=== PATIENT | female | born 1965 | race Caucasian/White ===

== ENCOUNTER 2020-04-18 10:14 | Outpatient (REF) | payer BC, SELFPAY ==
[2020-04-18 12:25] LABS: Erythrocyte Sedimentation Rate 23 MM/HR (0-20)
[2020-04-20 09:33] LABS: Vitamin B12 > 2000 pg/mL (200-900)
[2020-04-21 15:42] LABS: Anti Nuclear Antibody Screen NEGATIVE (NEGATIVE)
== END 2020-04-18 10:15 | disposition home or self-care (01) ==
LOC: HO.HMGCLDS 10:14
PROVIDERS: PCP Internal Medicine; Visit Provider Psychiatry & Neurology Neurology
DX: G62.9 Polyneuropathy, unspecified (principal)
CPT/HCPCS: 36415; 82607; 85652; 86038; 86039

== ENCOUNTER → 2021-05-15 14:20 | Outpatient (BNVA) | payer BC, SELFPAY | PROVIDERS: PCP Internal Medicine; Visit Provider Internal Medicine Cardiovascular Disease | DX: I42.8 Other cardiomyopathies (principal); I44.7 Left bundle-branch block, unspecified; J30.2 Other seasonal allergic rhinitis; Z91.030 Bee allergy status; Z88.8 Allergy status to other drugs, medicaments and biological substances | CPT/HCPCS: 93005 ==

== ENCOUNTER → 2021-07-17 13:03 | Outpatient (REF) | payer BC, SELFPAY ==
--- NOTE | 2021-07-17 13:07 | CA_ITS ---
Transthoracic Echocardiogram Patient (Last, First, Middle): Stacey Arevalo, Gender: Female Date of : 1965 Age: 56 Procedure Date: 07/17/2021 Procedure Type: Transthoracic Echocardiogram Location: OP Height: 157.48 cm Weight: 70.31 kg BSA: 1.72 m2 Heart Rate: 67 bpm BP: 122 / 64 mmHg Supervisor Shipping: SB Referring MD: Sanjay Stovall MD Symptoms: I42.8 - Other cardiomyopathies Study Quality: Fair/Contrast ECG Rhythm: Sinus Conclusions: - Normal left ventricular size and systolic function. The visually estimated ejection fraction is between 55-60%. - There is paradoxical septal motion consistent with a left bundle branch block. Diastolic function is indeterminate on the basis of available data. - Normal right ventricular cavity size and systolic function. Findings Procedure Information Contrast agent, definity, is being given per protocol without apparent complications. Left Ventricle Normal left ventricular size and systolic function. The visually estimated ejection fraction is between 55-60%. There is no evidence of regional wall motion abnormalities. There is paradoxical septal motion consistent with a left bundle branch block. Diastolic function is indeterminate on the basis of available data. There is mild septal asymmetric hypertrophy. Right Ventricle Normal right ventricular cavity size and systolic function. Atria The left atrium is normal in size. Aortic Valve The aortic valve structure and function is likely normal. There is no aortic valve stenosis. There is no aortic valve regurgitation. Mitral Valve The mitral valve appears normal. There is no mitral valve regurgitation. There is no mitral valve stenosis. Pulmonic Valve The pulmonic valve was not well visualized. Tricuspid Valve Likely normal tricuspid valve structure and function. There is trace tricuspid valve regurgitation. Normal right atrial pressure. There is no evidence of pulmonary hypertension. Great Vessels All visible segments of the aorta are normal in size. The pulmonary artery was not well visualized. Venous The inferior vena cava is normal in size and collapses greater than 50% with inspiration. Pericardium/Pleural There is no evidence of pericardial effusion. Prior Study Comparison Changes noted compared to prior study dated: 01/11/2019. LVEF is normal now. Measurements 2D Linear Measurements IVSd: 1.10 0.6-0.9/0.6-1.0 cm LVIDd: 4.11 3.9-5.3/4.2-5.9 cm LVIDd Index: 2.39 2.4-3.2/2.2-3.1 cm/m2 LVIDs: 2.67 2.0-3.6 cm LVPWd: 0.85 0.7-1.1 cm LA Diam: 3.00 2.7-3.8/3.0-4.0 cm LAIDs Index: 1.74 1.5-2.3 cm/m2 LV Mass: 159.01 67-162/88-224 g LV Mass Index: 92.45 43-95/49-115 g/m2 LVOT Diam: 1.80 3.0+(-)1.3 cm 2D Systolic Function EF 4C: 69.70 >55% EF 2C: 61.20 >55% EF BiP: 68.40 >55% Mitral Valve MV Pk E: 0.90 MV PK A: 0.76 MV Decel Time: 152.00 E/A: 1.20 E'Lateral: 8.92 E'Medial: 6.64 E/E' Med: 13.50 E/E' Lat: 10.00 PHT: 45.00 MVA PHT: 4.89 Decel [place]: 5.89 Aortic Valve AoV Pk Valente: 1.33 AoV Mn Valente: 1.03 AoV VTI: 0.30 AoV Pk Grad: 7.00 Aov Mn Grad: 5.00 MEG Cont.VTI: 2.35 LVOT LVOT Pk Valente: 1.04 LVOT Mn Valente: 0.87 LVOT VTI: 0.27 LVOT Pk Grad: 4.00 LVOT Mn Grad: 3.00 LVOT Diam: 1.80 LVOT Area: 2.54 Diastolic Function MV Pk E: 0.90 MV Pk A: 0.76 E/A: 1.20 E'Medial: 6.64 E/E' Med: 13.50 E' Laterial: 8.92 E/E' Lat: 10.00 Right Ventricle TAPSE (mm): 23.30 TVS' Valente: 12.00 Tricuspid Valve TR Pk Valente: 2.59 TR Pk Grad: 27.00 RA Press: 3.00 RVSP: 30.00 Great Vessels Aorta Ao Asc: 2.50 2.1-3.4 cm Pulmonary Veins Pulm Vein S/D 1.50 Pulmonary Valve PV Pk Valente: 0.83 Peak PV Grad: 3.00 Updated in Other Vendor System with Status of Final Sanjay Stovall MD electronically signed on 07/22/2021 5:04:59 PM with status of Final
== END ==
LOC: HO.CARD 13:03
PROVIDERS: PCP Internal Medicine; Visit Provider Internal Medicine Cardiovascular Disease
DX: I42.8 Other cardiomyopathies (principal)
CPT/HCPCS: 93306; Q9957

== ENCOUNTER → 2022-07-22 13:29 | Outpatient (BNVA) | payer BC, SELFPAY | PROVIDERS: PCP Internal Medicine; Referring Provider Internal Medicine; Visit Provider Internal Medicine Cardiovascular Disease | DX: I44.7 Left bundle-branch block, unspecified (principal) | CPT/HCPCS: 93005 ==

== ENCOUNTER 2024-03-08 11:25 | Outpatient (AMB) | payer BC, SELFPAY ==
--- NOTE | 2024-03-08 11:26 | A.OFFVIS_ITS ---
Vital Signs 03/08/24 11:27 Height 5 ft 2 in Weight 179 lb 14.355 oz BMI 32.9 BP 130/70 Blood Pressure Location Lt brachial Position Sitting Pulse 65 Pulse Source Monitor Intake Visit Reasons: f/up r/s from [id number] Intake Note: f/up Mothers Helper Required: No Accompanied by: Significant Other Allergies lisinopril [LISINOPRIL] Allergy (Unknown, Verified 07/22/22 13:35) UNKNOWN, cough bee stings Allergy (Unknown, Uncoded 07/22/22 13:35) swelling/edema seasonel allergies Allergy (Unknown, Uncoded 07/22/22 13:35) watery eyes, sneezing Medication List - Last Reconciled 03/08/24 by Sanjay Stovall MD diazepam 5 - 10 mg PO DAILY diclofenac sodium 1% 2 grams topical BID PRN duloxetine 60 mg PO BID ferrous sulfate (Feosol) 325 mg PO DAILY insulin lispro protamin-lispro 100 unit/mL (50-50) (Humalog Mix 50-50 KwikPen) 48 units subcut DAILY losartan 50 mg PO DAILY metoprolol tartrate 60 mg PO BID pantoprazole 40 mg PO DAILY pregabalin 150 mg PO TID rosuvastatin 20 mg PO QPM thiamine HCl (vitamin B1) 100 mg PO DAILY tramadol ER 100 mg PO DAILY HPI Comments Details: Pleasant 57-year-old female here for follow-up after 2 years. She was previously seen for sinus tachycardia and left bundle-branch block. Echocardiography showed mildly reduced ejection fraction. She was complaining of chest pains and after discussion was taken for cardiac catheterization which showed no significant coronary artery disease. She was thought to have nonischemic cardiomyopathy and was started on guideline directed medical therapy. Her tachycardia was thought to be secondary to new diagnosis of diabetes in polyuria and polydipsia with significant weight loss. She was improving 2 years ago and during COVID did not follow-up She returns now for follow-up. Unfortunately in February she had severe COVID infection complicated by MRSA pneumonia. She was intubated ventilated for approximately a week at [facility]. She recovered from that and was sent to rehab. After that she came back to hospital with weakness. She said she was taking tramadol and Lyrica previous to her admission in February with COVID-19 infection. These medications were stopped in the hospital but later resume by her doctor and subsequent to that she developed significant weakness and went to the emergency department and got admitted. Her medications have been stopped at this stage. Her blood pressure medications have also been changed and she is on metoprolol and losartan right now. Her blood pressure appears to be well controlled right now. She has no chest pain or shortness of breath. She feels very fatigued. She was also noted to be anemic with hemoglobins ranging from 7.8-8.6. She has been started on or on iron supplements. She had repeat echocardiography in July 2021 which showed normal biventricular function. She has been trying to physiotherapy and trying to exercise on her own. She feels fatigued and tired. 03/08/2024: She is here for follow-up. She is fatigued and tired. She has not been exercising regularly. She is saying she is going to [place] for 1 month then we will be doing more walking there. I have advised her to start going to gym and start exercising regularly and she plans to start that as she returns from [place]. Blood pressure is stable. [facility] Surgical History Hx of eye surgery Hx of appendectomy Family History Mother No problems noted. Father No problems noted. Social History Alcohol intake: current Alcohol intake frequency: holidays/special occasions only Patient Tobacco Use Status: Never used Tobacco Review of Systems Const Denies chills, Denies fatigue, Denies fever(s), Denies frequent falls, Denies weakness, Denies weight gain and Denies weight loss ENT Denies dizziness Card Denies chest pain, Denies leg edema, Denies lightheadedness, Denies palpitations, Denies dyspnea and Denies dyspnea on exertion Resp Denies cough, Denies dyspnea and Denies dyspnea on exertion GI Denies hematochezia Musc Denies abnormal gait, Denies muscle weakness, Denies numbness, Denies radiating pain into limb and Denies tingling Neuro Denies abnormal gait, Denies dizziness, Denies frequent falls, Denies numbness, Denies tingling and Denies weakness Endo Denies fatigue and Denies palpitations Physical Exam Vital Signs: Last Vital Signs Pulse 65 03/08/24 11:27 BP 130/70 03/08/24 11:27 BMI result Body Mass Index 32.9 GENERAL APPEARANCE: in no acute distress, pleasant. NECK: no carotid bruit, no jugular venous distention. SKIN: no suspicious lesions, warm and dry. HEART: no murmurs, regular rate and rhythm. LUNGS: clear to auscultation bilaterally. ABDOMEN: soft, nontender. EXTREMITIES: no edema. PERIPHERAL PULSES: equal. NEUROLOGIC: No gross deficits, AAO X 3 Office Procedures EKG Details: Sinus rhythm 65 beats per minute, left axis deviation, left bundle-branch block with QRS duration 124 milliseconds, QTC 461 milliseconds. [id number], Complete Assessment & Plan Assessment & Plan (1) LBBB (left bundle branch block): Code(s): I44.7 - Left bundle-branch block, unspecified Category: Medical Plan Pleasant 59 year female who has chronic left bundle-branch block and previously had mild cardiomyopathy. She underwent cardiac catheterization which did not show any significant coronary disease. She was thought to have nonischemic cardiomyopathy and over time her heart function has improved back to normal. As of July 2021 she had echocardiography performed which showed normal biventricular function. She has no chest pain or shortness of breath. She has complaints of fatigue which is related to her deconditioning. I have advised her to join a gym. Her blood sugar control also is up and down which is playing a role in her fatigue 2. Overall I think she will benefit from a structured exercise program and I have discussed that with her in detail. Chronic left bundle-branch block-we will periodically do echocardiography on her to make sure she does not developed any cardiomyopathy. We will repeat echocardiography before next visit. She will see us back in a year. Thank you for allowing me to participate in the care of your patient. Please feel free to contact me if you have any questions. Orders: Orders CA echo transthoracic complete 1 Year I44.7 - Left bundle-branch block, unspecified Coding Level of Care Code Est Pt Level 4 (69639) Diagnoses LBBB (left bundle branch block) I44.7 CPT Codes EKG - CPT: 78812-[id number], Complete ([id number])
[2024-03-08 11:27] VITALS: BP 130/70; PULSE 65; BMI 32.9
--- OUTSIDE RECORDS SUMMARY | 2024-03-08 13:49 | XMS_ITS | Encounter Summary ---
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 ([facility]/HCC) Social History Tobacco Use Types Packs/Day Years Used Date Smoking Tobacco: Never Smokeless Tobacco: Never Alcohol Use Standard Drinks/Week Comments Yes 0 (1 standard drink = 0.6 oz pur e alcohol) once and awhile Sex and Gender Information Value Date Recorded Sex Assigned at Not on file Gender Identity Not on file Sexual Orientation Not on file Job Start Date Occupation Industry Not on file Not on file Not on file documented as of this encounter Last Filed Vital Signs Vital Sign Reading Time Taken Comments Blood Pressure 148/66 03/02/2024 1:35 PM EST Pulse 75 03/02/2024 1:35 PM EST Temperature 36.8 ??C (98.2 ??F) 03/02/2024 1:35 PM ES T Respiratory Rate 18 03/02/2024 1:35 PM EST Oxygen Saturation 96% 03/02/2024 1:35 PM EST Inhaled Oxygen Concentration - - Weight - - Height - - Body Mass Index - - documented in this encounter Ordered Prescriptions Prescription Sig Dispensed Refills Start Date End Da te triamcinolone (KENALOG) 0.1 % cream Apply topically 2 (two) times a day. 30 g 1 03/02/2024 documented in this encounter Progress Notes * Leela Larios RN - 03/02/2024 1:00 PM EST It was noted today during your visit that your blood pressure is elevated. Close follow-up with PCPis recommended for possible evaluation of starting and or changing blood pressure medication. VisitVitals BP (!) 148/66 (BP Location: Left arm, Patient Position: Sitting, BP Cuff Size: Adult) Pulse 75 Temp 36.8 ??C (98.2 ??F) (Temporal) Resp 18 SpO2 96% Smoking Status Never PHYSICIAN ORDERS Go to ER if you are presenting with fever, chills, increased redness, pain, swelling, warmth aroundwound area and/or foul smelling odor. If you have any questions or concerns, please contact the [facility] at . Follow up(s)/ Referrals: Others: Dermatology March 2024, you can call us after your dermatology appt Assisted: N/A Additional Orders: Increase protein in your diet to help promote wound healing, Maintain good blood sugar control Offloading: N/A Negative Pressure Wound Therapy: N/A Cellular/Tissue Based Products: N/A Bathing / Showering / Hygiene: May shower without wound dressing. Non-wound Condition/ Other Skin Care: N/A Wound Location(s): Wound #1 (Left arm- distal): Cleanser: Cleanse with normal saline Periwound: N/A Topical: Triamcinolone 0.1% cream- apply a thin layer to wound bed Primary dressing: N/A Secondary dressing: Zetuvit or bandaid ok to leave open if not rubbing on anything and you are not scratching Secure with: N/A Compression Therapy: N/A Dressing Change Frequency: Daily Wound #2 (Left arm- proximal): Cleanser: Cleanse with normal saline Periwound: N/A Topical: Triamcinolone 0.1% cream- apply a thin layer to wound bed Primary dressing: N/A Secondary dressing: Zetuvit or bandaid ok to leave open if not rubbing on anything and you are not scratching Secure with: N/A Compression Therapy: N/A Dressing Change Frequency: Daily Wound #3 (Right arm- proximal): Cleanser: Cleanse with normal saline Periwound: N/A Topical: Triamcinolone 0.1% cream- apply a thin layer to wound bed Primary dressing: N/A Secondary dressing: Zetuvit or bandaid ok to leave open if not rubbing on anything and you are not scratching Secure with: N/A Compression Therapy: N/A Dressing Change Frequency: Daily Wound #4 (Right arm- distal): Cleanser: Cleanse with normal saline Periwound: N/A Topical: Triamcinolone 0.1% cream- apply a thin layer to wound bed Primary dressing: N/A Secondary dressing: Zetuvit or bandaid ok to leave open if not rubbing on anything and you are not scratching Secure with: N/A Compression Therapy: N/A Dressing Change Frequency: Daily Wound # 5 (Left face): Cleanser: Cleanse with normal saline Periwound: N/A Topical: Triamcinolone 0.1% cream- apply a thin layer to wound bed Primary dressing: N/A Secondary dressing: Zetuvit or bandaid ok to leave open if not rubbing on anything and you are not scratching Secure with: N/A Compression Therapy: N/A Dressing Change Frequency: Daily * AMALIA Mesa - 03/02/2024 1:00 PM ESTAddended by: TIM VIRGEN on: 03/02/2024 02:30 PM Modules accepted: Orders * AMALIA Mesa - 03/02/2024 1:00 PM EST Images from the original note were not included. [facility] [place] [address] Office Visit Visit Date: 03/02/2024 Patient Name: Stacey Arevalo Date of : 1965 PCP: Nevaeh Junior MD HPI: Stacey Arevalo is a 59 y.o. female who presents to the to the wound care center for followup small skin lesions to the upper extremities and left facial area. Patient's diagnosis of dermatitis plans to follow-up with dermatology. Has follow-up with dermatology March 20. Patient has been using triamcinolone cream at home with positive relief improvement of symptoms. Does have difficulty not scratching her skin at times. No sign of obvious infection at this time patient denies any fever or chills. 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 Patient to continue with triamcinolone cream as it has improved symptoms. Patient also recommended to use some Benadryl at night foritching. No sign of wound infection at this time. Stacey Arevalo elevated blood pressure reviewed with patient. Patient understands the need to follow-up closely with PCP. Symptomatic All questions were answered to her satisfaction. She was counseled regarding my impressions, instructions for management, and the importance of compliance with treatment. Follow up today (on 03/02/2024). >>>>>>>>>>>>>>>>>>>>>>>>>>>>>>>>>>>>>>>>>>>>>>>>>>> Vital Signs: Visit Vitals BP (!) 148/66 (BP Location: Left arm, Patient Position: Sitting, BP Cuff Size: Adult) Pulse 75 Temp 36.8 ??C (98.2 ??F) (Temporal) Resp 18 Review of Systems: Review of Systems Constitutional: Negative for chills and fever. Skin: Positive for wound. PHYSICAL EXAM Physical Exam Vitals and nursing note reviewed. Constitutional: Appearance: Normal appearance. HENT: Head: Normocephalic. Eyes: Extraocular Movements: Extraocular movements intact. Pulmonary: Effort: Pulmonary effort is normal. Musculoskeletal: General: Normal range of motion. Skin: Comments: Bilateral upper [place] small irritated skin lesions are noted circular in nature. No purulent discharge noted no lymphangitis or external induration concerning for cellulitis. Patient also has 1 facial lesion on the left side of her face. No purulent discharge wound edges are intact. Neurological: General: No focal deficit present. Mental Status: She is alert and oriented to person, place, and time. WOUND ASSESSMENT If photograph of wound not visible on this note, please check under Media tab. Wound Other (comment) 12/29/23 Arm Anterior;Left;Distal (Active) Date First Assessed: 12/29/23 Primary Wound Type: (c) Other (comment) Wound Approximate Age at First Assessment (Weeks): 12 weeks Hand Hygiene Completed: Yes Location: Arm Wound Location Orientation:Anterior;Left;Distal Assessments 12/29/2023 11:09 AM 03/02/2024 1:33 PM Wound Image Wound Bed Tissue Assessment Red Granulation;Sloughing;Dry Sujatha-Wound Assessment Dry;Intact Dry;Intact Wound Length (cm) 3.9 cm 0.7 cm Wound Width (cm) 1.3 cm 0.5 cm Wound Surface Area (cm^2) 5.07 cm^2 0.35 cm^2 Wound Depth (cm) 0.1 cm 0.1 cm Wound Volume (cm^3) 0.507 cm^3 0.035 cm^3 Wound Healing % -- 93 Drainage Amount None None Treatments Cleansed Other (Comment) Dressing -- Open to air Wound Bed Granulation (%) 100 % 40 % Wound Bed Epithelialization (%) 0 % -- Wound Bed Slough (%) 0 % 60 % Wound Bed Eschar (%) 0 % 0 % Tunneling 0 cm 0 cm Undermining 0 cm 0 cm Edges Attached edges;Well-defined edges Well-defined edges;Attached edges Non-staged Wound Description Partial thickness Full thickness No associated orders. Wound Other (comment) 12/29/23 Arm Left;Proximal (Active) Date First Assessed: 12/29/23 Primary Wound Type: Other (comment) Wound Approximate Age at First Assessment (Weeks): 12 weeks Hand Hygiene Completed: Yes Location: Arm Wound Location Orientation: Left;Proximal Assessments 12/29/2023 11:11 AM 03/02/2024 1:32 PM Wound Image Wound Bed Tissue Assessment Red;[place];Yellow Granulation;Sloughing;Dry Sujatha-Wound Assessment Intact;Dry Dry;Intact Wound Length (cm) 3.1 cm 0.5 cm Wound Width (cm) 3.9 cm 0.7 cm Wound Surface Area (cm^2) 12.09 cm^2 0.35 cm^2 Wound Depth (cm) 0.1 cm 0.1 cm Wound Volume (cm^3) 1.209 cm^3 0.035 cm^3 Wound Healing % -- 97 Drainage Description Serous -- Drainage Amount Moderate None Treatments Cleansed Other (Comment) Dressing -- Open to air Wound Bed Granulation (%) 40 % 50 % Wound Bed Epithelialization (%) 0 % -- Wound Bed Slough (%) 60 % 50 % Wound Bed Eschar (%) 0 % 0 % Tunneling 0 cm 0 cm Undermining 0 cm 0 cm Edges Attached edges;Well-defined edges Well-defined edges;Attached edges Non-staged Wound Description Full thickness Full thickness Active Orders Date Order Priority Status Authorizing Provider 02/16/24 1523 Wound Care Supplies Routine Active Radha Thomas NP - Wound Care Supplies: Other (Zetuvit with border 4x4) - Days Supply:: 30 - Wound Care Refill Qty:: 1 - Debridement Performed:: No - Wound Drainage:: Moderate - Dispense As Written (NORA)?: Yes - Frequency of Dressing Change: daily - Further DME Specification:: notify patient of any cost to patient prior to filling order, see free texted supplies - Face to face evaluation was performed on: 02/16/2024 12/29/23 1221 Wound Care Supplies Routine Active AMALIA Mesa - Wound Care Supplies: Gauze 4x4 (non sterile) (4 inch sandy, zetuvit 3x3 with border) - Wound Care Supplies: Other - Wound Care Supplies: Medipore tape - Wound Care Supplies: Normal saline for irrigation (sterile) - 500ml - Days Supply:: 30 - Wound Drainage:: Moderate - Face to face evaluation was performed on: 12/29/2023 - Additional providers who completed a face to face evaluation of the patient:: TIM VIRGEN Wound Other (comment) 12/29/23 Arm Right;Upper;Proximal (Active) Date First Assessed: 12/29/23 Primary Wound Type: (c) Other (comment) Wound Approximate Age at First Assessment (Weeks): 12 weeks Hand Hygiene Completed: Yes Location: Arm Wound Location Orientation:Right;Upper;Proximal Assessments 12/29/2023 11:13 AM 03/02/2024 1:34 PM Wound Image Wound Bed Tissue Assessment Red;[place] Dry;Sloughing;Granulation Sujatha-Wound Assessment Dry;Intact;Scarred Dry;Intact Wound Length (cm) 0.9 cm 0.6 cm Wound Width (cm) 0.9 cm 0.8 cm Wound Surface Area (cm^2) 0.81 cm^2 0.48 cm^2 Wound Depth (cm) 0.1 cm 0.1 cm Wound Volume (cm^3) 0.081 cm^3 0.048 cm^3 Wound Healing % -- 41 Drainage Description Serous -- Drainage Amount Moderate None Treatments Cleansed Other (Comment) Dressing -- Open to air Wound Bed Granulation (%) 70 % 60 % Wound Bed Epithelialization (%) 0 % -- Wound Bed Slough (%) 30 % 40 % Wound Bed Eschar (%) 0 % 0 % Tunneling 0 cm 0 cm Undermining 0 cm 0 cm Edges Attached edges;Well-defined edges Well-defined edges;Attached edges Non-staged Wound Description Full thickness Full thickness Active Orders Date Order Priority Status Authorizing Provider 02/16/24 1523 Wound Care Supplies Routine Active Radha Thomas NP - Wound Care Supplies: Other (Zetuvit with border 4x4) - Days Supply:: 30 - Wound Care Refill Qty:: 1 - Debridement Performed:: No - Wound Drainage:: Moderate - Dispense As Written (NORA)?: Yes - Frequency of Dressing Change: daily - Further DME Specification:: notify patient of any cost to patient prior to filling order, see free texted supplies - Face to face evaluation was performed on: 02/16/2024 12/29/23 1221 Wound Care Supplies Routine Active AMALIA Mesa - Wound Care Supplies: Gauze 4x4 (non sterile) (4 inch sandy, zetuvit 3x3 with border) - Wound Care Supplies: Other - Wound Care Supplies: Medipore tape - Wound Care Supplies: Normal saline for irrigation (sterile) - 500ml - Days Supply:: 30 - Wound Drainage:: Moderate - Face to face evaluation was performed on: 12/29/2023 - Additional providers who completed a face to face evaluation of the patient:: TIM VIRGEN Wound Other (comment) 12/29/23 Arm Right;Upper;Distal (Active) Date First Assessed: 12/29/23 Primary Wound Type: (c) Other (comment) Wound Approximate Age at First Assessment (Weeks): 12 weeks Hand Hygiene Completed: Yes Location: Arm Wound Location Orientation:Right;Upper;Distal Assessments 12/29/2023 11:14 AM 03/02/2024 1:34 PM Wound Image Wound Bed Tissue Assessment [place];Red Granulation;Sloughing;Dry Sujatha-Wound Assessment Scarred;Dry Dry;Intact Wound Length (cm) 0.8 cm 0.9 cm Wound Width (cm) 0.8 cm 0.8 cm Wound Surface Area (cm^2) 0.64 cm^2 0.72 cm^2 Wound Depth (cm) 0.1 cm 0.1 cm Wound Volume (cm^3) 0.064 cm^3 0.072 cm^3 Wound Healing % -- -13 Drainage Amount None None Treatments Cleansed Other (Comment) Dressing -- Open to air Wound Bed Granulation (%) 90 % 50 % Wound Bed Epithelialization (%) 0 % -- Wound Bed Slough (%) 10 % 50 % Wound Bed Eschar (%) 0 % 0 % Tunneling 0 cm 0 cm Undermining 0 cm -- Edges Attached edges;Well-defined edges Well-defined edges;Attached edges Non-staged Wound Description Partial thickness Full thickness Active Orders Date Order Priority Status Authorizing Provider 02/16/24 1523 Wound Care Supplies Routine Active Radha Thomas NP - Wound Care Supplies: Other (Zetuvit with border 4x4) - Days Supply:: 30 - Wound Care Refill Qty:: 1 - Debridement Performed:: No - Wound Drainage:: Moderate - Dispense As Written (NORA)?: Yes - Frequency of Dressing Change: daily - Further DME Specification:: notify patient of any cost to patient prior to filling order, see free texted supplies - Face to face evaluation was performed on: 02/16/2024 Wound Other (comment) 12/29/23 Face Left (Active) Date First Assessed: 12/29/23 Primary Wound Type: (c) Other (comment) Wound Approximate Age at First Assessment (Weeks): 12 weeks Hand Hygiene Completed: Yes Location: Face Wound Location Orientation: Left Assessments 12/29/2023 11:16 AM 03/02/2024 1:31 PM Wound Image Wound Bed Tissue Assessment Red;Yellow Granulation;Sloughing;Dry Sujatha-Wound Assessment Dry;Intact Dry;Intact Wound Length (cm) 3 cm 0.8 cm Wound Width (cm) 2.1 cm 0.8 cm Wound Surface Area (cm^2) 6.3 cm^2 0.64 cm^2 Wound Depth (cm) 0.1 cm 0.1 cm Wound Volume (cm^3) 0.63 cm^3 0.064 cm^3 Wound Healing % -- 90 Drainage Description Serous -- Drainage Amount Moderate None Treatments Cleansed Other (Comment) Dressing -- Open to air Wound Bed Granulation (%) 70 % 10 % Wound Bed Epithelialization (%) 0 % -- Wound Bed Slough (%) 30 % 90 % Wound Bed Eschar (%) 0 % 0 % Tunneling 0 cm 0 cm Undermining 0 cm 0 cm Edges Attached edges;Well-defined edges Attached edges;Well-defined edges Non-staged Wound Description Full thickness Full thickness Active Orders Date Order Priority Status Authorizing Provider 12/29/23 1221 Wound Care Supplies Routine Active AMALIA Mesa - Wound Care Supplies: Gauze 4x4 (non sterile) (4 inch sandy, zetuvit 3x3 with border) - Wound Care Supplies: Other - Wound Care Supplies: Medipore tape - Wound Care Supplies: Normal saline for irrigation (sterile) - 500ml - Days Supply:: 30 - Wound Drainage:: Moderate - Face to face evaluation was performed on: 12/29/2023 - Additional providers who completed a face to face evaluation of the patient:: TIM VIRGEN Procedure Note: Procedures PROVIDER ORDERS Patient Instructions It was noted today during your visit that your blood pressure is elevated. Close follow-up with PCPis recommended for possible evaluation of starting and or changing blood pressure medication. VisitVitals BP (!) 148/66 (BP Location: Left arm, Patient Position: Sitting, BP Cuff Size: Adult) Pulse 75 Temp 36.8 ??C (98.2 ??F) (Temporal) Resp 18 SpO2 96% Smoking Status Never PHYSICIAN ORDERS Go to ER if you are presenting with fever, chills, increased redness, pain, swelling, warmth aroundwound area and/or foul smelling odor. If you have any questions or concerns, please contact the [facility] at . Follow up(s)/ Referrals: Others: Dermatology March 2024, you can call us after your dermatology appt Assisted: N/A Additional Orders: Increase protein in your diet to help promote wound healing, Maintain good blood sugar control Offloading: N/A Negative Pressure Wound Therapy: N/A Cellular/Tissue Based Products: N/A Bathing / Showering / Hygiene: May shower without wound dressing. Non-wound Condition/ Other Skin Care: N/A Wound Location(s): Wound #1 (Left arm- distal): Cleanser: Cleanse with normal saline Periwound: N/A Topical: Triamcinolone 0.1% cream- apply a thin layer to wound bed Primary dressing: N/A Secondary dressing: Zetuvit or bandaid ok to leave open if not rubbing on anything and you are not scratching Secure with: N/A Compression Therapy: N/A Dressing Change Frequency: Daily Wound #2 (Left arm- proximal): Cleanser: Cleanse with normal saline Periwound: N/A Topical: Triamcinolone 0.1% cream- apply a thin layer to wound bed Primary dressing: N/A Secondary dressing: Zetuvit or bandaid ok to leave open if not rubbing on anything and you are not scratching Secure with: N/A Compression Therapy: N/A Dressing Change Frequency: Daily Wound #3 (Right arm- proximal): Cleanser: Cleanse with normal saline Periwound: N/A Topical: Triamcinolone 0.1% cream- apply a thin layer to wound bed Primary dressing: N/A Secondary dressing: Zetuvit or bandaid ok to leave open if not rubbing on anything and you are not scratching Secure with: N/A Compression Therapy: N/A Dressing Change Frequency: Daily Wound #4 (Right arm- distal): Cleanser: Cleanse with normal saline Periwound: N/A Topical: Triamcinolone 0.1% cream- apply a thin layer to wound bed Primary dressing: N/A Secondary dressing: Zetuvit or bandaid ok to leave open if not rubbing on anything and you are not scratching Secure with: N/A Compression Therapy: N/A Dressing Change Frequency: Daily Wound # 5 (Left face): Cleanser: Cleanse with normal saline Periwound: N/A Topical: Triamcinolone 0.1% cream- apply a thin layer to wound bed Primary dressing: N/A Secondary dressing: Zetuvit or bandaid ok to leave open if not rubbing on anything and you are not scratching Secure with: N/A Compression Therapy: N/A Dressing Change Frequency: Daily 03/02/2024 2:09 PM EST AMALIA Aaron Disclaimer: Speech recognition software was utilized to dictate portions of this document. Errors in math tutor may be present. Please reach out to me if any questions. * Katherine Colon RN - 03/02/2024 1:00 PM EST Discharge Patient directed to check out at front end specialist and collect visit summary with wound care directions and book follow up as directed. Dressings applied: Wound #1 (Left arm- distal): Cleanser: Cleanse with normal saline Topical: Triamcinolone 0.1% cream- apply a thin layer to wound bed Secondary dressing: Bandaid with gauze Wound #2 (Left arm- proximal): Cleanser: Cleanse with normal saline Topical: Triamcinolone 0.1% cream- apply a thin layer to wound bed Secondary dressing: Bandaid with gauze Wound #3 (Right arm- proximal): Cleanser: Cleanse with normal saline Topical: Triamcinolone 0.1% cream- apply a thin layer to wound bed Secondary dressing: Bandaid with gauze Wound #4 (Right arm- distal): Cleanser: Cleanse with normal saline Topical: Triamcinolone 0.1% cream- apply a thin layer to wound bed Secondary dressing: Bandaid with gauze Wound # 5 (Left face): Cleanser: Cleanse with normal saline Topical: Triamcinolone 0.1% cream- apply a thin layer to wound bed Secondary dressing: Bandaid with gauze Dressing technique was demonstrated and explained. Patient questions answered. Pt discharge from wound care center without issue or incidence. documented in this encounter Plan of Treatment Upcoming Encounters Date Type Department Care Team (Late st Contact Info) Description 05/18/2024 1:00 PM EDT Office Visit Adult Medicine [address] [phone] Ana Lilia Dorsey PA [address] [place] [address] documented as of this encounter Goals Goal Patient Goal Type Associated Problems Recent Progress Patient-Stated? Author Decrease Wound Volume by X% by date (in notes) Care Plan Impaired Tissue On track( 025 2:26 PM EST) Leela Lloyd RN Note: 03/02/24- Derm follow up in [place] Patient and Caregiver Understand Wound Care Education Care Plan Impaired Tissue Not on track( 025 1:33 PM EST) Leela Lloyd RN Note: Education ongoing Wound volume breakdown reduced by X% by week 4 Care Plan Impaired Tissue No Leela Larios RN Wound volume breakdown reduced by X% by week 8 Care Plan Impaired Tissue No Leela Larios RN Wound volume breakdown reduced by X% by week 12 Care Plan Impaired Tissue No Leela Larios RN Quit using tobacco (cigarettes, smokeless, etc) Care Plan Education needed on impact of smoking on wound No Leela Larios RN Reduce tobacco use (cigarettes, smokeless, etc) Care Plan Education needed on impact of smoking on wound No Leela Larios RN Decrease Wound Volume by X% by date (in notes) Care Plan Education needed on impact of smoking on wound No Leela Larios RN Patient and Caregiver Understand Wound Care Education Care Plan Education needed related to ulceration/compr omised skin integrity. 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 Reorder 02/16/2024 03/02/2024 documented as of this encounter Additional Health Concerns Active Problems Noted Date Diagnosed Date Impaired Tissue 12/29/2023 Education needed on impact of smoking on wound 1 02/27/2023 Education needed related to ulceration/compromised skin integrity. 12/29/2023 documented as of this encounter Care Teams Nail Feeder Relationship Specialty Start Date End Date Nevaeh Junior MD [address] [place] [id number] PCP - General 03/18/22 documented as of this encounter
--- OUTSIDE RECORDS SUMMARY | 2024-03-08 13:49 | XMS_ITS | Encounter Summary ---
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); Diabetes mellitus with skin ulcer (CMS/HCC) Social History Tobacco Use Types Packs/Day Years Used Date Smoking Tobacco: Never Smokeless Tobacco: Never Tobacco Cessation:Counseling Given: Not Answered Alcohol Use Standard Drinks/Week Comments Yes 0 [...] Sign Reading Time Taken Comments Blood Pressure 141/60 02/16/2024 1:09 PM EST Pulse 64 02/16/2024 1:09 PM EST Temperature 36.1 ??C (97 ??F) 02/16/2024 1:09 PM EST Respiratory Rate 18 02/16/2024 1:09 PM EST Oxygen Saturation 100% 02/16/2024 1:09 PM EST Inhaled Oxygen Concentration - - Weight - - Height - - Body Mass Index - - documented in this encounter Ordered Prescriptions Prescription Sig Dispensed Refills Start Date End Da te triamcinolone (KENALOG) 0.1 % cream Apply topically 2 (two) times a day. 30 g 1 02/16/2024 03/02/2024 documented in this encounter Progress Notes * Elizabeth Srinivasan RN - 02/16/2024 12:30 PM EST It was noted today during your visit that your blood pressure is elevated. Close follow-up with PCPis recommended for possible evaluation of starting and or changing blood pressure medication. VisitVitals BP (!) 141/60 (BP Location: Right arm, Patient Position: Sitting, BP Cuff Size: Adult) Pulse 64 Temp 36.1 ??C (97 ??F) Resp 18 SpO2 100% Smoking Status Never PHYSICIAN ORDERS Go to ER if you are presenting with fever, chills, increased redness, pain, swelling, warmth aroundwound area and/or foul smelling odor. If you have any questions or concerns, please contact the [facility] at . Follow up(s)/ Referrals: Others: Dermatology Penitentiary: N/A Additional Orders: Increase protein in your [...] bed Primary dressing: N/A Secondary dressing: Zetuvit ok to leave open if not rubbing on anything and you are not scratching Secure with: N/A Compression Therapy: N/A Dressing Change Frequency: Daily Wound #2 (Left arm- proximal): Cleanser: Cleanse with normal saline Periwound: N/A Topical: Triamcinolone 0.1% cream- apply a thin layer to wound bed Primary dressing: N/A Secondary dressing: Zetuvit ok to leave open if not rubbing on anything and you are not scratching Secure with: N/A Compression Therapy: N/A Dressing Change Frequency: Daily Wound #3 (Right arm- proximal): Cleanser: Cleanse with normal saline Periwound: N/A Topical: Triamcinolone 0.1% cream- apply a thin layer to wound bed Primary dressing: N/A Secondary dressing: Zetuvit ok to leave open if not rubbing on anything and you are not scratching Secure with: N/A Compression Therapy: N/A Dressing Change Frequency: Daily Wound #4 (Right arm- distal): Cleanser: Cleanse with normal saline Periwound: N/A Topical: Triamcinolone 0.1% cream- apply a thin layer to wound bed Primary dressing: N/A Secondary dressing: Zetuvit ok to leave open if not rubbing on anything and you are not scratching Secure with: N/A Compression Therapy: N/A Dressing Change Frequency: Daily Wound # 5 (Left face): Cleanser: Cleanse with normal saline Periwound: N/A Topical: Triamcinolone 0.1% cream- apply a thin layer to wound bed Primary dressing: N/A Secondary dressing: Zetuvit ok to leave open if not rubbing on anything and you are not scratching Secure with: N/A Compression Therapy: N/A Dressing Change Frequency: Daily * Elizabeth Srinivasan RN - 02/16/2024 12:30 PM ESTAddended by: ELIZABETH SRINIVASAN on: 02/16/2024 03:25 PM Modules accepted: Orders * Leela Larios RN - 02/16/2024 12:30 PM EST Discharge Patient directed to check out at [facility] front load [facility] and collect visit summary with wound care directions and book follow up as directed. Dressings applied: Wound #1 (Left arm- distal): Cleanser: Cleanse with normal saline Topical: Triamcinolone 0.1% cream- apply a thin layer to wound bed Secondary dressinx3 foam Wound #2 (Left arm- proximal): Cleanser: Cleanse with normal saline Topical: Triamcinolone 0.1% cream- apply a thin layer to wound bed Secondary dressinx3 foam Wound #3 (Right arm- proximal): Cleanser: Cleanse with normal saline Topical: Triamcinolone 0.1% cream- apply a thin layer to wound bed Secondary dressinx3 foam Wound #4 (Right arm- distal): Cleanser: Cleanse with normal saline Topical: Triamcinolone 0.1% cream- apply a thin layer to wound bed Secondary dressinx3 foam Wound # 5 (Left face): Cleanser: Cleanse with normal saline Topical: Triamcinolone 0.1% cream- apply a thin layer to wound bed Secondary dressinx3 foam Dressing technique was demonstrated and explained. Patient questions answered. Pt discharge from wound care center without issue or incidence. * Radha Thomas NP - 02/16/2024 12:30 PM EST Images from the original note were not included. Office Visit Visit Date: 02/16/2024 Patient Name: Stacey Arevalo Date of : 1965 PCP: Nevaeh Junior MD HPI: Stacey is a 59-year-old female who presents to the wound center for follow-up evaluation andmanagement of wounds to the upper extremities and left facial area. She was last evaluated here at the wound center on December 28 but was lost to follow-up. She has been using the triamcinolone cream to the areas which she said has been improving the itchiness of the wounds. Dermatology evaluationpending. Denies fever or chills Past Medical History: Diagnosis Date COVID-19 virus infection 02/16/2021 DX:COVID-19 virus infection DM (diabetes mellitus), type 1 with neurological complications (CMS/HCC) 06/01/2018 DX:DM (diabetes mellitus), type 1 with neurological complications (HCC); COMMENT: Dx'd 02/2018 Essential hypertension 02/18/2018 DX:Essential hypertension GERD (gastroesophageal reflux disease) 09/07/2018 DX:GERD (gastroesophageal reflux disease) Non-ischemic cardiomyopathy (CMS/HCC) 07/12/2018 DX:Non-ischemic cardiomyopathy (HCC); COMMENT: EF 40-45% Peripheral polyneuropathy 02/18/2018 DX:Peripheral polyneuropathy Spinal stenosis Vitamin D deficiency 03/04/2018 DX:Vitamin D deficiency Patient Active Problem List Diagnosis 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 DULoxetine (CYMBALTA) [address] capsule Take 1 capsule (30 mg total) by mouth 2 (two) times a day. DULoxetine (CYMBALTA) [address] capsule Take 1 capsule (60 mg total) by mouth 1 (one) time each day in the morning. HYDROcodone-acetaminophen (NORCO) 7.5-325 mg per tablet Take 1 tablet by mouth 2 (two) times a day if needed. INSULIN LISPRO SUBQ Inject 50 Units under the skin at bedtime. losartan (COZAAR) 50 mg tablet Take 1 tablet (50 mg total) by mouth 1 (one) time each day. metoprolol tartrate (LOPRESSOR) 50 mg tablet Take 1 tablet (50 mg total) by mouth 2 (two) times a day. pregabalin (LYRICA) 150 mg capsule Take 1 capsule (150 mg total) by mouth. Quviviq 50 mg tablet Take 50 mg by mouth at bedtime. Max Daily Amount: 50 mg rosuvastatin (CRESTOR) 20 mg tablet Take 1 tablet (20 mg total) by mouth daily. traMADoL 100 mg tablet Take 100 mg by mouth 1 (one) time each day. Max Daily Amount: 100 mg cetirizine (ZyrTEC) 10 mg tablet Take 1 tablet (10 mg total) by mouth 1 (one) time each day. furosemide (LASIX) 20 mg tablet Take 1 tablet (20 mg total) by mouth 1 (one) time each day. (Patient not taking: Reported on 02/16/2024) insulin lispro (HumaLOG KwikPen Insulin) 100 unit/mL injection pen Inject 0-14 Units under the skin3 (three) times a day before meals. pantoprazole (PROTONIX) 40 mg EC tablet Take 1 tablet (40 mg total) by mouth 1 (one) time each day. No current facility-administered medications on file prior to visit. ROS Review of Systems Constitutional: Negative. HENT: Negative. Respiratory: Negative. Cardiovascular: Negative. Gastrointestinal: Negative. Endocrine: Negative. Skin: Positive for wound. Psychiatric/Behavioral: Negative. Vital Signs: Visit Vitals BP (!) 141/60 (BP Location: Right arm, Patient Position: Sitting, BP Cuff Size: Adult) Pulse 64 Temp 36.1 ??C (97 ??F) Resp 18 SpO2 100% Smoking Status Never PHYSICAL EXAM Physical Exam Constitutional: Appearance: Normal appearance. HENT: Head: Normocephalic and atraumatic. Cardiovascular: Rate and Rhythm: Normal rate. Pulmonary: Effort: Pulmonary effort is normal. Abdominal: General: Abdomen is flat. Skin: General: Skin is warm and dry. Findings: Wound present. Comments: Small circular open areas of the upper extremities. Wound bases are clean without nonviable tissue noted. Slight inflammation at SUJATHA ulcer. No advancing erythema, streaking or purulence noted. Neurological: Mental Status: She is alert. Psychiatric: Mood and Affect: Mood normal. Behavior: Behavior normal. Wound: As described. Wounds are stable at this time with no overt signs of infection. Some localized inflammation noted WOUND ASSESSMENT If photograph of wound not visible on this note, please check under Media tab. Wound Other (comment) 12/29/23 Arm Anterior;Left;Distal (Active) Wound Image 02/16/24 1253 Wound Bed Tissue Assessment Granulation;Luis M. Cintron;Epithelialization 02/16/24 1253 Sujatha-Wound Assessment Intact;Dry 02/16/24 1253 Wound Length (cm) 0.2 cm 02/16/24 1253 Wound Width (cm) 0.2 cm 02/16/24 1253 Wound Surface Area (cm^2) 0.04 cm^2 02/16/24 1253 Wound Depth (cm) 0.1 cm 02/16/24 1253 Wound Volume (cm^3) 0.004 cm^3 02/16/24 1253 Wound Healing % 99 02/16/24 1253 Drainage Amount None 02/16/24 1253 Treatments Cleansed 02/16/24 1253 Wound Bed Granulation (%) 5 % 02/16/24 125 Wound Bed Epithelialization (%) 95 % 02/16/24 125 Wound Bed Slough (%) 0 % 02/16/241252 Wound Bed Eschar (%) 0 % 02/16/241252 Tunneling 0 cm 02/16/241252 Undermining 0 cm 02/16/241252 Edges Attached edges;Well-defined edges 02/16/241252 Non-staged Wound Description Full thickness 02/16/241252 Wound Other (comment) 12/29/23 Arm Left;Proximal (Active) Wound Image 02/16/241250 Wound Bed Tissue Assessment Granulation;Sloughing 02/16/241250 Sujatha-Wound Assessment Scarred;Luis M. Cintron 02/16/241 Wound Length (cm) 0.8 cm 02/16/241250 Wound Width (cm) 0.8 cm 02/16/241 Wound Surface Area (cm^2) 0.64 cm^2 02/16/241 Wound Depth (cm) 0.1 cm 02/16/241 Wound Volume (cm^3) 0.064 cm^3 02/16/24 1251 Wound Healing % 95 02/16/24 1251 Drainage Description Serous 02/16/24 125 Drainage Amount Small 02/16/24 1251 Treatments Cleansed 02/16/241 Wound Bed Granulation (%) 90 % 02/16/241250 Wound Bed Epithelialization (%) 5 % 02/16/241250 Wound Bed Slough (%) 5 % 02/16/241250 Wound Bed Eschar (%) 0 % 02/16/241250 Tunneling 0 cm 02/16/241250 Undermining 0 cm 02/16/241250 Edges Attached edges;Well-defined edges 02/16/241250 Non-staged Wound Description Full thickness 02/16/241250 Wound Other (comment) 12/29/23 Arm Right;Upper;Proximal (Active) Wound Image 02/16/24 1255 Wound Bed Tissue Assessment Granulation;Sloughing 02/16/24 1255 Sujatha-Wound Assessment Dry;Intact;Luis M. Cintron 02/16/24 1255 Wound Length (cm) 1 cm 02/16/24 1255 Wound Width (cm) 1 cm 02/16/24 1255 Wound Surface Area (cm^2) 1 cm^2 02/16/24 1255 Wound Depth (cm) 0.1 cm 02/16/24 125 Wound Volume (cm^3) 0.1 cm^3 02/16/24 1255 Wound Healing % -23 02/16/24 125 Drainage Description Serous 02/16/24 1255 Drainage Amount Moderate 12/29/23 1113 Treatments Cleansed 02/16/241254 Wound Bed Granulation (%) 80 % 02/16/24 125 Wound Bed Epithelialization (%) 0 % 02/16/24 125 Wound Bed Slough (%) 20 % 02/16/24 125 Wound Bed Eschar (%) 0 % 02/16/245 Tunneling 0 cm 02/16/241254 Undermining 0 cm 02/16/24 1255 Edges Attached edges;Well-defined edges 02/16/245 Non-staged Wound Description Full thickness 02/16/241254 Wound Other (comment) 12/29/23 Arm Right;Upper;Distal (Active) Wound Image 02/16/24 1254 Wound Bed Tissue Assessment Granulation;Sloughing 02/16/24 1254 Sujatha-Wound Assessment Scarred;Dry;Luis M. Cintron;Intact 02/16/24 1254 Wound Length (cm) 0.8 cm 12/29/23 1114 Wound Width (cm) 1 cm 02/16/244 Wound Surface Area (cm^2) 0.64 cm^2 12/29/23 1114 Wound Depth (cm) 0.1 cm 02/16/24 1254 Wound Volume (cm^3) 0.064 cm^3 12/29/23 1114 Drainage Description Serous 02/16/24 1254 Drainage Amount Small 02/16/24 1254 Treatments Cleansed 02/16/24 1254 Wound Bed Granulation (%) 90 % 12/29/23 111 Wound Bed Epithelialization (%) 0 % 12/29/23 1114 Wound Bed Slough (%) 10 % 12/29/23 1114 Wound Bed Eschar (%) 0 % 12/29/23 1114 Tunneling 0 cm 12/29/23 1114 Undermining 0 cm 02/16/24 1254 Edges Attached edges;Well-defined edges 02/16/24 1254 Non-staged Wound Description Full thickness 02/16/24 1254 Wound Other (comment) 12/29/23 Face Left (Active) Wound Image 02/16/24 1250 Wound Bed Tissue Assessment Granulation 02/16/24 1250 Sujatha-Wound Assessment Dry;Intact 12/29/23 1116 Wound Length (cm) 1 cm 02/16/24 1250 Wound Width (cm) 0.8 cm 02/16/24 1250 Wound Surface Area (cm^2) 0.8 cm^2 02/16/24 1250 Wound Depth (cm) 0.1 cm 02/16/24 1250 Wound Volume (cm^3) 0.08 cm^3 02/16/24 1250 Wound Healing % 87 02/16/24 1250 Drainage Description Serous 12/29/23 1116 Drainage Amount None 02/16/24 1250 Treatments Cleansed 02/16/24 1250 Wound Bed Granulation (%) 100 % 02/16/24 1250 Wound Bed Epithelialization (%) 0 % 02/16/24 1250 Wound Bed Slough (%) 0 % 02/16/24 1250 Wound Bed Eschar (%) 0 % 02/16/24 1250 Tunneling 0 cm 02/16/24 1250 Undermining 0 cm 02/16/24 1250 Edges Attached edges;Well-defined edges 02/16/24 1250 Non-staged Wound Description Full thickness 02/16/24 1250 Pertinent Labs: Hemoglobin A1C Date Value Ref Range Status 07/14/2022 8.9 (A) 6.5 % Final Debridement Note: Procedures PLAN OF CARE 1. Dermatitis Provider Orders: Patient Instructions It was noted today during your visit that your blood pressure is elevated. Close follow-up with PCPis recommended for possible evaluation of starting and or changing blood pressure medication. VisitVitals BP (!) 141/60 (BP Location: Right arm, Patient Position: Sitting, BP Cuff Size: Adult) Pulse 64 Temp 36.1 ??C (97 ??F) Resp 18 SpO2 100% Smoking Status Never PHYSICIAN ORDERS Go to ER if you are presenting with fever, chills, increased redness, pain, swelling, warmth aroundwound area and/or foul smelling odor. If you have any questions or concerns, please contact the [facility] at . Follow up(s)/ Referrals: Others: Dermatology Penitentiary: N/A Additional Orders: Increase protein in your [...] bed Primary dressing: N/A Secondary dressing: Zetuvit ok to leave open if not rubbing on anything and you are not scratching Secure with: N/A Compression Therapy: N/A Dressing Change Frequency: Daily Wound #2 (Left arm- proximal): Cleanser: Cleanse with normal saline Periwound: N/A Topical: Triamcinolone 0.1% cream- apply a thin layer to wound bed Primary dressing: N/A Secondary dressing: Zetuvit ok to leave open if not rubbing on anything and you are not scratching Secure with: N/A Compression Therapy: N/A Dressing Change Frequency: Daily Wound #3 (Right arm- proximal): Cleanser: Cleanse with normal saline Periwound: N/A Topical: Triamcinolone 0.1% cream- apply a thin layer to wound bed Primary dressing: N/A Secondary dressing: Zetuvit ok to leave open if not rubbing on anything and you are not scratching Secure with: N/A Compression Therapy: N/A Dressing Change Frequency: Daily Wound #4 (Right arm- distal): Cleanser: Cleanse with normal saline Periwound: N/A Topical: Triamcinolone 0.1% cream- apply a thin layer to wound bed Primary dressing: N/A Secondary dressing: Zetuvit ok to leave open if not rubbing on anything and you are not scratching Secure with: N/A Compression Therapy: N/A Dressing Change Frequency: Daily Wound # 5 (Left face): Cleanser: Cleanse with normal saline Periwound: N/A Topical: Triamcinolone 0.1% cream- apply a thin layer to wound bed Primary dressing: N/A Secondary dressing: Zetuvit ok to leave open if not rubbing on anything and you are not scratching Secure with: N/A Compression Therapy: N/A Dressing Change Frequency: Daily Goals for the wound(s): -Healing goal is a reduction in wound volume of 30% at 4 weeks, 50% at 8 weeks, 75% at 12 weeks, and 100% at 16 weeks. Will continually reassess and adjust the treatment strategy if not on the healing curve. Potential to heal: Good potential to Heal Plan: Continue with triamcinolone cream as contact. Follow-up with Dermatology All questions were answered to her satisfaction. She was counseled regarding my impressions, instructions for management, and the importance of compliance with treatment. The wound will be continually assessed for the presence of infection. If infection is suspected, appropriate intervention or referral to infection disease specialist will be considered. The patient has been educated concerning the need for increased protein in her diet for wound healing. It is also recommended that she work with her PCP to optimize her metabolic status and glycemic control as appropriate. Follow up in about 2 weeks (around 03/01/2024) for with Radha . 02/16/2024 1:52 PM EST Radha Thomas NP documented in this encounter Plan of Treatment Upcoming Encounters Date Type Department Care Team (Late st Contact Info) Description 05/18/2024 1:00 PM EDT Office Visit Adult Medicine [address] [phone] Ana Lilia Dorsey PA [address] [place] [id number] documented as of this encounter Goals Goal [...] diabetes mellitus with other neurologic complication (CMS/HCC) Diabetes mellitus with skin ulcer ([facility]) Type II or unspecified type diabetes mellitus with other specified manifestations, not stated as uncontrolled documented in this encounter Orders General Supply Count Last Ordered Date First Or dered Date WOUND CARE SUPPLIES 1 02/16/2024 documented in this encounter Additional Health Concerns Active Problems Noted Date Diagnosed Date Impaired Tissue 12/29/2023 Education needed on impact of smoking on wound 1 02/27/2023 Education needed related to ulceration/compromised skin integrity. 12/29/2023 documented as of this encounter Care Teams Gray Tender Relationship Specialty Start Date End Date Nevaeh Junior MD [address] [place] [id number] PCP - General 03/18/22 documented as of this encounter
--- OUTSIDE RECORDS SUMMARY | 2024-03-08 13:49 | XMS_ITS | Clinical Summary ---
Author Organization [facility] Address [address] [place] [address] Phone Care Team Providers Care Sailing Officer Name Role Phone Nevaeh Juinor MD Primary Care Pr ovider Allergies Active Allergy Reactions Criticality Noted Date Comments Bee Venom Protein (Honey Bee) Swelling High 02/28/2018 Lisinopril Other,Unknown Medium 05/11/2018 Cough Other Medium 04/28/2018 Watery eye's , sneezing Medications Medication Sig Dispensed Refills Start Date End Date Status acetaminophen (TYLENOL) 325 mg tablet Take 3 tablets (975 mg total) by mouth. 03/25/2021 Active cetirizine (ZyrTEC) 10 mg tablet Take 1 tablet (10 mg total) by mouth 1 (one) time each day. 11/18/2023 Active pantoprazole (PROTONIX) 40 mg EC tablet Take 1 tablet (40 mg total) by mouth 1 (one) time each day. 04/03/2021 Active rosuvastatin (CRESTOR) 20 mg tablet Take 1 tablet (20 mg total) by mouth daily. 02/06/2021 Active furosemide (LASIX) 20 mg tablet Take 1 tablet (20 mg total) by mouth 1 (one) time each day. 05/12/2023 Active Quviviq 50 mg tablet Take 50 mg by mouth at bedtime. Max Daily Amount: 50 mg Active DULoxetine (CYMBALTA) [address] capsule Take 1 capsule (30 mg total) by mouth 2 (two) times a day. 10/06/2021 Active DULoxetine (CYMBALTA) [address] capsule Take 1 capsule (60 mg total) by mouth 1 (one) time each day in the morning. Active losartan (COZAAR) 50 mg tablet Take 1 tablet (50 mg total) by mouth 1 (one) time each day. Active metoprolol tartrate (LOPRESSOR) 50 mg tablet Take 1 tablet (50 mg total) by mouth 2 (two) times a day. 11/18/2023 Active insulin lispro (HumaLOG KwikPen Insulin) 100 unit/mL injection pen Inject 0-14 Units under the skin 3 (three) times a day before meals. 09/21/2018 Active INSULIN LISPRO SUBQ Inject 50 Units under the skin at bedtime. Active traMADoL 100 mg tablet Take 100 mg by mouth 1 (one) time each day. Max Daily Amount: 100 mg Active pregabalin (LYRICA) 150 mg capsule Take 1 capsule (150 mg total) by mouth. 10/06/2021 Active HYDROcodone-aceta minophen (NORCO) 7.5-325 mg per tablet Take 1 tablet by mouth 2 (two) times a day if needed. Active triamcinolone (KENALOG) 0.1 % cream Apply topically 2 (two) times a day. 30 g 1 03/02/2024 Active triamcinolone (KENALOG) 0.1 % cream Apply topically 2 (two) times a day. 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 12/29/2023 Dermatitis 12/29/2023 Left bundle branch block (LBBB) 05/29/2022 COVID-19 08/13/2021 Fibromyalgia 09/25/2020 Osteoarthritis of both sacroiliac joints 021 Primary osteoarthritis of both hands 09/25/2020 Anxiety 09/07/2018 GERD (gastroesophageal reflux disease) 9 Non-ischemic cardiomyopathy 07/12/2018 Overview (01/20/2024): 05/19/22 EF 55-60% DM (diabetes mellitus), type 1 with neurological complications 06/01/2018 Overview (01/20/2024): Dx'd 02/2018 Vitamin D deficiency 03/04/2018 Essential hypertension 02/18/2018 Peripheral polyneuropathy 02/18/2018 Encounters Date Type Department Care Team Description 03/02/2024 1:00 PM EST Office Visit [facility] [address] [place] [phone] Tim Virgen PA Dermatitis (Primary Dx); Type 1 diabetes mellitus with other neurologic complication ([facility]/HCC) 02/18/2024 Telephone [facility] [address] [place] [phone] Joselyn León RN 02/16/2024 12:30 PM EST Office Visit [facility] [address] [place] [phone] Radha Thomas NP Dermatitis (Primary Dx); Type 1 diabetes mellitus with other neurologic complication (CMS/HCC); Diabetes mellitus with skin ulcer (CMS/HCC) 12/30/2023 Telephone [facility] [address] [place] [phone] Dot Ding LPN Referral (Office did not receive electronic fax so I faxed it again to [phone]) 12/29/2023 10:00 AM EST Office Visit [facility] [address] [place] [phone] Tim Virgen PA Type 1 diabetes mellitus with other neurologic complication ([facility]/HCC) (Primary Dx); Dermatitis; Fibromyalgia from Last 3 Months Immunizations Name Administration Dates Next Due Influenza Quadrivalent, 0.5m l, preservative free (Fluarix; FluLaval; Fluzone) ages 6mo and older (Afluria) 3yo and older 11/27/2020,12/17/2017 Moderna SARS-CoV-2 COVID-19, mRNA, LNP-S, preservative free 02/12/2021 Pneumococcal polysaccharide 23 valent (Pneumovax 23) 2yo and older 11/27/2020,03/04/2018 Td Tetanus diptheria (Tdvax) 7yo and older 02/15 Tdap Tetanus diptheria acell ular pertussis (Boostrix; Adacel) 7yo and older 02/24/2012 Surgical History Surgery Date Site/Laterality Comments APPENDECTOMY PROCEDURE: HISTORICAL APPENDECTOMY; COMMENT: in EYE SURGERY 2012 Right PROCEDURE: HISTORICAL EYE SURGERY; COMMENT: blocked tear duct - tube placement CARDIAC CATHETERIZATION 06/16/2018 PROCEDURE: HISTORICAL CARDIAC CATH Medical History Medical History Date Comments Essential hypertension 02/18/2018 DX:Essent ial hypertension Peripheral polyneuropathy 02/18/2018 DX:Per ipheral polyneuropathy GERD (gastroesophageal reflu x disease) 09/07/2018 DX:GERD (gastroesophageal re flux disease) DM (diabetes mellitus), type 1 with neurological complications (CMS/HCC) 06/01/2018 DX:DM (diabetes m ellitus), type 1 with neurological complications ([facility]); COMMENT: Dx'd 02/2018 Non-ischemic cardiomyopathy (CMS/HCC) 07/12/2018 DX:Non-ischemic cardiomyopathy ([facility]); COMMENT: EF 40-45% Vitamin D deficiency 03/04/2018 DX:Vitamin D deficiency COVID-19 virus infection 02/16/2021 DX:COVI D-19 virus infection Spinal stenosis Family History Medical History Relation Name Comments Other: Duodenal Ulcers Aunt 1 Other: Heart surgery Aunt 2 Maternal Other: congenital heart disease Daughter 1 Heart transplant- Cardiomyopathy ae 23 Drug abuse Daughter 2 No Known Problems Father COPD Grandparent Grandmother No Known Problems Maternal Grandfather Arthritis Maternal Grandmother osteopo rosis Diabetes Mother Melanoma No Known Problems Paternal Grandfather Relation Name Status Comments Aunt 1 Aunt 2 Maternal Daughter 1 Daughter 2 Alive Father Alive Grandparent Grandmother Maternal Grandfather Maternal Grandmother Mother Alive Paternal Grandfather Paternal Grandmother Social History Tobacco Use Types Packs/Day Years [...] file Not on file Not on file Obstetrics History Last Filed Vital Signs Vital Sign Reading Time Taken Comments Blood Pressure 148/66 03/02/2024 1:35 PM EST Pulse 75 03/02/2024 1:35 PM EST Temperature 36.8 ??C (98.2 ??F) 03/02/2024 1:35 PM ES T Respiratory Rate 18 03/02/2024 1:35 PM EST Oxygen Saturation 96% 03/02/2024 1:35 PM EST Inhaled Oxygen Concentration - - Weight 81.6 kg (180 lb) 11/18/2023 12:47 PM EDT Height 157.5 cm (5' 2 ) 11/18/2023 12:47 PM EDT Body Mass Index 32.92 11/18/2023 12:47 PM EDT Plan of Treatment Upcoming Encounters Date Type Department Care Team (Late st Contact Info) Description 05/18/2024 1:00 PM EDT Office Visit Adult Medicine [address] [phone] Ana Lilia Dorsey PA [address] [place] [address] Health Maintenance Due Date Last Done Comments Breast Cancer Screening 1965 Cervical Cancer Screening: Pap Smear 09/16/2012 09/16/2009 Zoster Vaccines (1 of 2) 2013 Colorectal Cancer Screening: Colonoscopy 01/11/2022 Depression Screening 01/11/2022 Social Influencers of Health Screening 01/11/2022 RSV Immunization Patients 60+ Years Old (1 - Risk 60-74 years 1-dose series) 2023 Diabetes: Blood Sugar Control Test (HGBA1C) 01/13/2023 07/14/2022 COVID-19 Vaccine ( season) 2023 10/01/2021, 02/12/2021, 06/05/2020, Additional history exists Influenza Vaccine (#1) 2023 , 11/27/2020, 11/07/2019, Additional history exists Diabetes: Annual Retina Eye Exam 06/08/2024 06/09/2023 Diabetes: Annual Foot Exam 09/08/2024 09/09/2023 Diabetes: Annual Urine Albumin-Creatinine Ratio (uACR) 09/14/2024 09/15/2023, 07/14/2022, 07/01/2022 Diabetes: Annual GFR (Glomerular Filtration Rate) 09/14/2024 09/15/2023, 07/14/2022, 07/01/2022, Additional history exists Hypertension/CHF/CAD Annual BMP Blood Test 09/14/2024 09/15/2023, 07/14/2022, 07/01/2022, Additional history exists Cholesterol Screening (Lipid Panel) 07/15/2027 07/14/2022 DTaP,Tdap,and Td Vaccines (3 - Td or Tdap) 02/16/2028 02/15/2018, 02/24/2012 HIV Screening Completed 09/21/2018 Hepatitis C Screening Completed 07/14/2022 Pneumococcal Vaccine: Pediatrics (0 to 5 Years) and At-Risk Patients (6 to 64 Years) Completed 11/26/2022, 11/27/2020, 11/27/2020, Additional history exists HIB Vaccines Aged Out No longer eligi ble based on patient's age to complete this topic HPV Vaccines Aged Out No longer eligi ble based on patient's age to complete this topic Hepatitis A Vaccines Aged Out No long er eligible based on patient's age to complete this topic Hepatitis B Vaccines Aged Out No long er eligible based on patient's age to complete this topic IPV Vaccines Aged Out No longer eligi ble based on patient's age to complete this topic MMR Vaccines Aged Out No longer eligi ble based on patient's age to complete this topic Meningococcal ACWY Vaccine Aged Out N o longer eligible based on patient's age to complete this topic RSV Immunization Patients Under 20 months Aged Out No longer eligible based on patient's age to complete this topic Varicella Vaccines Aged Out No longer eligible based on patient's age to complete this topic Goals Goal Patient Goal Type Associated Problems Recent Progress Patient-Stated? Author Decrease Wound Volume by X% by date (in notes) Care Plan Impaired Tissue On track( 025 2:26 PM EST) Leela Lloyd, RN Note: 03/02/24- Derm follow up in Mar Patient and Caregiver Understand Wound Care Education Care Plan Impaired Tissue Not on track( 025 1:33 PM EST) No Leela Larios RN Note: Education ongoing Wound volume breakdown [...] omised skin integrity. No Leela Larios RN Procedures Procedure Name Priority Date/Time Associated Diagnosis Comments DIABETES FOOT EXAM Routine 09/09/2023 DIABETES EYE EXAM Routine 06/09/2023 HEPATITIS C SCREENING Routine 07/14/2022 URINE ALBUMIN CREATININE RATIO Routine 07/14/2022 ANNUAL BMP BLOOD TEST Routine 07/14/2022 HEMOGLOBIN A1C Routine 07/14/2022 LIPID PANEL Routine 07/14/2022 HIV SCREENING Routine 09/21/2018 PAP SMEAR Routine 09/16/2009 from Last 3 Months or Most Recently Relevant to Health Maintenance Results * Diabetes Foot Exam (09/09/2023) Pathologist [facility] Diabetes: Annual Foot Exam Abstracted Historical Provider MD CHUCK Anderson * Diabetes Eye Exam (06/09/2023) Pathologist [facility] Diabetes: Annual Retina [facility] Exam [facility]ed [facility] * Urine Albumin Creatinine Ratio (07/14/2022) [facility] Urine Albumin Creatinine Ratio Abstracted [facility] * Annual BMP Blood Test (07/14/2022) [facility] Annual BMP Blood Test Abstracted [facility] * Hepatitis C Screening (07/14/2022) [facility] Hepatitis C Screening Abstracted Historical Provider MD CHUCK FRANLKIN [facility] (ABNORMAL) Hemoglobin A1c (07/14/2022) [facility] Hemoglobin A1C 8.9(A) 6.5 % Blood Venous blood specimen / Unknown Historical Provider LAB BLOOD ORDERAB LES * (ABNORMAL) Lipid panel (07/14/2022) [facility] LDL/HDL Ratio 2 0 - 4 Triglycerides 157(A) 0 - 150 mg/dL Cholesterol 83 0 - 200 mg/dL HDL 38(A) 40 mg/dL LDL Cholesterol 14 0 - 100 mg/dL Blood Venous blood specimen / Unknown Historical Provider LAB BLOOD ORDERAB LES * HIV Screening (09/21/2018) [facility] HIV Screening Abstracted [facility] * Pap Smear (09/16/2009) [facility] Pap smear Abstracted, no interpretation Historical Provider MD CHUCK FRANKLIN from Last 3 Months or Most Recently Relevant to Health Maintenance Additional Health Concerns Active Problems Noted Date Diagnosed Date Impaired Tissue 12/29/2023 Education needed on impact of smoking on wound 1 02/27/2023 Education needed related to ulceration/compromised skin integrity. 12/29/2023 Care Teams Sailing Officer Relationship Specialty Start Date End Date Nevaeh Junior MD [address] [place] [phone] PCP - General 03/18/22
--- OUTSIDE RECORDS SUMMARY | 2024-03-08 13:49 | XMS_ITS | Encounter Summary ---
Author Organization [facility] Address [address] [place] [address] Care Team Providers Care Balancing Machine Operator Name Role Phone Nevaeh Junior MD Primary Care Pr ovider Encounter Details Date Type Department Care Team (Late st Contact Info) Description 02/18/2024 Telephone [facility] [address] [place] [phone] Joselyn León RN Social History Tobacco Use Types Packs/Day Years [...] on file documented as of this encounter Progress Notes * Joselyn León RN - 02/18/2024 10:54 AM EST Senior Underwriter from [facility] dermatology returned call and reports patient has been booked for appointment on Mar 20 and that the patient has been notified of the appointment. No additional action at this time. documented in this encounter Plan of Treatment Upcoming Encounters Date Type Department Care Team (Late Contact Info) Description 05/18/2024 1:00 PM EDT Office Visit Adult Medicine [address] [phone] Ana Lilia Dorsey PA [address] [place] [address] documented as of this encounter Goals Goal [...] documented as of this encounter Visit Diagnoses Not on filedocumented in this encounter Additional Health Concerns Active Problems Noted Date Diagnosed Date Impaired Tissue 12/29/2023 Education needed on impact of smoking on wound 1 02/27/2023 Education needed related to ulceration/compromised skin integrity. 12/29/2023 documented as of this encounter Care Teams Balancing Machine Operator Relationship Specialty Start Date End Date Nevaeh Junior MD [address] [place] [address] PCP - General 03/18/22 documented as of this encounter
--- OUTSIDE RECORDS SUMMARY | 2024-03-08 13:49 | XMS_ITS ---
Care Plan Created on: March 08, 2024 Stacey Arevalo : 1965 Sex: Female Author Organization [facility] Address [address] [place] [address] Phone Care Team Providers Care Hardboard Supervisor Name Role Phone Nevaeh Junior MD Primary Care Pr ovider Active Problems Problem Noted Date Diagnosed Date [...] 03/04/2018 Essential hypertension 02/18/2018 Peripheral polyneuropathy 02/18/2018 Additional Health Concerns Active Problems Noted Date Diagnosed Date Impaired Tissue 12/29/2023 Education needed on impact of smoking on wound 1 02/27/2023 Education needed related to ulceration/compromised skin integrity. 12/29/2023 Goals Goal Patient Goal Type Associated Problems [...] omised skin integrity. No Leela Larios RN Interventions Intervention Entry Date Outcome Provide caregiver with wound care procedure information 12/29/2023 Educate caregiver on proper wound care procedures 12/29/2023 Give provider list of wound care supplies 12/29/2023 Refill wound care supplies 12/29/2023 Send Wound Care Supplies 12/29/2023 Give provider list of wound care supplies 12/29/2023 Refill wound care supplies 12/29/2023 Send Wound Care Supplies 12/29/2023 Provide caregiver with wound care procedure information 12/29/2023 Educate caregiver on proper wound care procedures 12/29/2023 Document patient eligibility for HBO 12/29/2023 Assess patient for HBO treatment 12/29/2023 Record wound depth 12/29/2023 Record total wound area 12/29/2023 Measure wound progress 12/29/2023 Create an action plan identifying patient strengths and supports 12/29/2023 Establish quit date with patient 12/29/2023 Discuss prior cessation attempts 12/29/2023 Discuss preferred method of cessation and plan 12/29/2023 Discuss barriers to smoking cessation 12/29/2023 Discuss smoking status with patient 12/29/2023 Create an action plan identifying patient strengths and supports 12/29/2023 Establish quit date with patient 12/29/2023 Discuss prior cessation attempts 12/29/2023 Discuss preferred method of cessation and plan 12/29/2023 Discuss barriers to smoking cessation 12/29/2023 Discuss smoking status with patient 12/29/2023 Provide caregiver with wound care procedure information 12/29/2023 Educate caregiver on proper wound care procedures 12/29/2023 Document patient eligibility for HBO 12/29/2023 Assess patient for HBO treatment 12/29/2023 Record wound depth 12/29/2023 Record total wound area 12/29/2023 Measure wound progress 12/29/2023 Provide caregiver with wound care procedure information 12/29/2023 Educate caregiver on proper wound care procedures 12/29/2023 Document patient eligibility for HBO 12/29/2023 Assess patient for HBO treatment 12/29/2023 Record wound depth 12/29/2023 Record total wound area 12/29/2023 Measure wound progress 12/29/2023 Provide caregiver with wound care procedure information 12/29/2023 Educate caregiver on proper wound care procedures 12/29/2023 Document patient eligibility for HBO 12/29/2023 Assess patient for HBO treatment 12/29/2023 Record wound depth 12/29/2023 Record total wound area 12/29/2023 Measure wound progress 12/29/2023 Provide caregiver with wound care procedure information 12/29/2023 Educate caregiver on proper wound care procedures 12/29/2023 Give provider list of wound care supplies 12/29/2023 Refill wound care supplies 12/29/2023 Send Wound Care Supplies 12/29/2023 Give provider list of wound care supplies 12/29/2023 Refill wound care supplies 12/29/2023 Provide caregiver with wound care procedure information 12/29/2023 Educate caregiver on proper wound care procedures 12/29/2023 Record wound depth 12/29/2023 Record total wound area 12/29/2023 Measure wound progress 12/29/2023 Related Goals and Interventions Goal Associated Intervent ions Decrease Wound Volume by X% by date (in notes) Give provider list of wound care supplie s; Refill wound care supplies; Provide caregiver with wound care procedure information; Educate caregiver on proper wound care procedures; Record wound depth; Record total wound area; Measure wound progress Patient and Caregiver Unders tand Wound Care Education Provide caregiver with wound care proced ure information; Educate caregiver on proper wound care procedures; Give provider list of wound care supplies; Refill wound care supplies; Send Wound Care Supplies Wound volume breakdown reduc ed by X% by week 4 Provide caregiver with wound care proced ure information; Educate caregiver on proper wound care procedures; Document patient eligibility for HBO; Assess patient for HBO treatment; Record wound depth; Record total wound area; Measure wound progress Wound volume breakdown reduc ed by X% by week 8 Provide caregiver with wound care proced ure information; Educate caregiver on proper wound care procedures; Document patient eligibility for HBO; Assess patient for HBO treatment; Record wound depth; Record total wound area; Measure wound progress Wound volume breakdown reduc ed by X% by week 12 Provide caregiver with wound care proced ure information; Educate caregiver on proper wound care procedures; Document patient eligibility for HBO; Assess patient for HBO treatment; Record wound depth; Record total wound area; Measure wound progress Quit using tobacco (cigarett es, smokeless, etc) Create an action plan identifying patien t strengths and supports; Establish quit date with patient; Discuss prior cessation attempts; Discuss preferred method of cessation and plan; Discuss barriers to smoking cessation; Discuss smoking status with patient Reduce tobacco use (cigarett es, smokeless, etc) Create an action plan identifying patien t strengths and supports; Establish quit date with patient; Discuss prior cessation attempts; Discuss preferred method of cessation and plan; Discuss barriers to smoking cessation; Discuss smoking status with patient Decrease Wound Volume by X% by date (in notes) Give provider list of wound care supplie s; Refill wound care supplies; Send Wound Care Supplies; Provide caregiver with wound care procedure information; Educate caregiver on proper wound care procedures; Document patient eligibility for HBO; Assess patient for HBO treatment; Record wound depth; Record total wound area; Measure wound progress Patient and Caregiver Unders tand Wound Care Education Provide caregiver with wound care proced ure information; Educate caregiver on proper wound care procedures; Give provider list of wound care supplies; Refill wound care supplies; Send Wound Care Supplies
--- OUTSIDE RECORDS SUMMARY | 2024-03-08 13:50 | XMS_ITS | Clinical Summary ---
Author Organization [facility] Facility Address [address] [address] Care Team Providers Care Dipping Machine Operator Name Role Phone Heidy Browning Primary Care Provider [phone] Allergies Active Allergy Reactions Criticality Noted Date Comments Lisinopril Other (see comments) 07/01/2018 Medications Multiple Vitamin (MULTIVITAMIN ADULT PO) Take 1 capsule by mouth 1 (one) time each day Active insulin glargine (Basaglar KwikPen) 100 UNIT/ML injection Inject 19 Units under the skin at bed time Active insulin lispro (HumaLOG) 100 UNIT/ML injection Inject 30 Units under the skin Active acetaminophen (TYLENOL) 325 MG tablet Take 975 mg by mouth 2 Active Continuous Blood Gluc Sensor (FreeStyle Sheri 14 Day Sensor) misc APPLY TO THE BACK OF THE UPPER ARM EVERY 14 DAYS DIRECTED 2 Active Diclofenac Sodium 1 % gel APPLY 4GMS TO AFFECTED AREA 3 TIMES A DAY - 4 TIMES A DAY 2 Active hydrALAZINE 50 MG tablet Take 50 mg by mouth 2 Active HYDROcodone-ronald taminophen (NORCO) 5-325 MG per tablet Take 1 tablet by mouth 2 Active BD Pen Needle Dolores 2nd Gen 32G X 4 MM misc INJECT 4 TIMES A DAY 1 Active lidocaine (LIDODERM) 5 % patch Apply 1 patch topically 2 Active Melatonin-Pyrid oxine ER 5-10 MG tablet controlled-rele ase Take by mouth 2 Active metoprolol tartrate (LOPRESSOR) 50 MG tablet Take 100 mg by mouth in the morning and 100 mg in the evening. 2 Active pantoprazole (PROTONIX) 40 MG EC tablet Take 40 mg by mouth 1 (one) time each day 2 Active pregabalin (LYRICA) 100 MG capsule Take 200 mg by mouth in the morning and 200 mg in the evening. 2 Active rosuvastatin (CRESTOR) 20 MG tablet TAKE 1 TABLET BY MOUTH EVERY EVENING FOR 180 DAYS. 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 04/21/2021 Hypertensive disorder 06/24/2020 Resolved Problems Problem Noted Date Diagnosed Date Resolved Date Labile hypertension due to precious mendoza in a clinical environment 06/24/2020 05/07/2021 Immunizations Name Administration Dates Next Due Moderna SARS-COV-2 02/12/2021 Pfizer SARS-COV-2 06/05/2020,05/15/2020 Pneumococcal Polysaccharide 11/27/2020 Family History Medical History Relation Comments Cancer Mother skin Diabetes Mother Relation Status Comments Father Mother Alive Social History Tobacco Use Types Packs/Day Years Used Date Smoking Tobacco: Never Smokeless Tobacco: Never Alcohol Use Standard Drinks/Week Comments Yes 0 (1 standard drink = 0.6 oz pure alcohol) Alcoholic Drinks/day: Occasional social drink Comments Unknown Sex and Gender Information Value Date Recorded Sex Assigned at Not on file Legal Sex Female 10:39 AM EST Gender Identity Not on file Sexual Orientation Not on file Last Filed Vital Signs Vital Sign Reading Time Taken Comments Blood Pressure 138/72 05/13/2021 4:01 PM EDT Pulse 74 05/13/2021 4:01 PM EDT Temperature - - Respiratory Rate - - Oxygen Saturation 97% 05/13/2021 4:01 PM EDT Inhaled Oxygen Concentration - - Weight 70.8 kg (156 lb) 05/13/2021 4:01 PM EDT Height 157.5 cm (5' 2 ) 06/30/2019 12:00 PM EDT Body Mass Index 28.53 06/30/2019 12:00 PM EDT Plan of Treatment Health Maintenance Due Date Last Done Comments Breast Cancer Screening 1965 Colorectal Cancer Screening: Annual FOBT 01/06/2012 Colorectal Cancer Screening: Colonoscopy 01/06/2012 Colorectal Cancer Screening: Sigmoidoscopy 01/06/2012 Diabetes: Hemoglobin A1C 04/15/2021 03/02/2019 Diabetes: Ophthalmology Exam 04/15/2021 Diabetes: Pedal Pulse Checked 04/15/2021 Diabetes: Sensory Foot Exam 04/15/2021 Diabetes: Visual Foot Exam 04/15/2021 Pneumococcal Vaccine: Pediatrics (0 to 5 Years) and At-Risk Patients (6 to 64 Years) (3 of 3 - PCV) 11/27/2021 11/27/2020, 03/04/2018 Influenza Vaccine (#1) 2023 Hepatitis B Vaccine Aged Out No longe r eligible based on patient's age to complete this topic Procedures Procedure Name Priority Date/Time Associated Diagnosis Comments COMPREHENSIVE METABOLIC PANEL Routine 03/02/2019 12:00 AM EST from Last 3 Months or Most Recently Relevant to Health Maintenance Results * (ABNORMAL) Comprehensive Metabolic Panel (03/02/2019 12:00 AM EST) Chloride 99 97 - 110 mEq/L [facility] Hemoglobin A1C 9.0(H) 4.0 - 6.0 % [facility] Albumin 4.4 3.4 - 5.0 g/dl [facility] ALT (SGPT) 23 0 - 40 IU/L [facility] Total Bilirubin 0.3 0.2 - 1.5 mg/dL [facility] Sodium 138 134 - 146 mEq/L [facility] Glucose 259 mg/dl [facility] Alkaline Phosphatase 94 33 - 133 IU/L [facility] Potassium 4.5 3.6 - 5.0 mEq/L [facility] Total Protein 7.4 6.2 - 8.2 gm/dl [facility] Bicarbonate (CO2) 30 23 - 31 mE/q/L [facility] Anion Gap 9 5.0 - 15.0 mMol/L [facility] AST (SGOT) 22 0 - 37 IU/L [facility] 03/02/2019 us Rtama Conversion LAB BLOOD ORDERABLES Final Resu lt [facility] from Last 3 Months or Most Recently Relevant to Health Maintenance Insurance [facility] Care Teams Dipping Machine Operator Relationship Specialty Start Date End Date Heidy Browning: [phone] [place] [id number] [facility] - General 02/19/20
--- OUTSIDE RECORDS SUMMARY | 2024-03-08 13:50 | XMS_ITS | Encounter Summary ---
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 Name Role Phone Heidy Browning Primary Care Provider [phone] Encounter Details Date Type Department Care Team (Late st Contact Info) Description 06/24/2020 Orders Only [facility] [address] [place] [id number] Provider, MD Perla [address] [place] [id number] Social History Tobacco Use Types Packs/Day Years Used Date Smoking Tobacco: Never Alcohol Use Standard Drinks/Week Comments Yes 0 (1 standard drink = 0.6 oz pure alcohol) Alcoholic Drinks/day: Occasional social drink Comments Unknown Sex and Gender Information Value Date Recorded Sex Assigned at Not on file Legal Sex Female 10:39 AM EST Gender Identity Not on file Sexual Orientation Not on file documented as of this encounter Plan of Treatment Not on file documented as of this encounter Procedures Procedure Name Priority Date/Time Associated Diagnosis Comments EXT RESULT ENTRY Routine 03/12/2020 documented in this encounter Results * EXT RESULT ENTRY (03/12/2020) Historical Provider LAB BLOOD ORDERABLES Josefina l Result documented in this encounter Visit Diagnoses Not on filedocumented in this encounter Care Teams Assembler [employer]pillar Spider Relationship Specialty Start Date End Date NallelyElinmargo [address] [place], [place] [id number] PCP - General 02/19/20 documented as of this encounter
--- OUTSIDE RECORDS SUMMARY | 2024-03-08 13:50 | XMS_ITS | Patient Health Record ---
Author Organization [facility] Address [address] [facility] [place] [address] Care Team Providers Care Iron Cutter Name Role Phone Heidy Browning MD Primary Care Provider Unavailabl e Black, Gretel Unavailable [phone] Allergies Allergen (clinical drug ingredient) Drug/Non Drug Allergy documented on EMR Reaction Allergy Type Onset Date Status lisinopril Lisinopril Unknown Drug Allergy Activ e Reason For Referral No Information Medications Medication SIG (Take, Route, Frequency, Duration) Notes Start Date End Date Status Diclofenac Sodium 1 % 1 application Exte rnally Four times a day Active Multivitamin - 1 tablet Orally Once a day for 30 day(s) Active Metoprolol Tartrate 50 MG 1 tablet with food Orally Twice a day for 30 day(s) Active iron 1 tab Oral for 14 days Active Pantoprazole Sodium 40 MG 1 tablet Orall y Once a day for 30 day(s) Active Rosuvastatin Calcium 20 MG 1 tablet Oral ly Once a day for 30 day(s) Active Pregabalin 50 MG 1 capsule Orally Twi ce a day Active HYDROcodone-Acetaminophen 5-325 MG 1 tablet as needed Orally every 6 hrs Active Vitamin B1 100 MG 1 tablet Orally Once a day for 30 day(s) Active Magnesium Oxide 400 MG 1 tablet as neede d Orally Once a day for 30 day(s) Active HumaLOG 100 UNIT/ML as directed Injection Active Basaglar KwikPen 100 UNIT/ML as directed Subcutaneous Act erin Lidocaine 5 % 1 patch remove after 12 hours Externally Once a day Active Losartan Potassium 50 MG 1 tablet Orally Once a day for 30 day(s) Active DULoxetine HCl 30 MG 1 capsule Orally On ce a day for 30 day(s) Active Social History Tobacco Use: Social History Observation Description Date Details (start date - stop date) Never Smoker NA - NA Tobacco Use/Smoking Question Answer Notes Are you a: nonsmoker Additional Findings: Tobacco Non-User Aggressive non-smoker Alcohol Screen Question Answer Notes Did you have a drink containing alcohol in the p ast year? No Points 0 Interpretation Negative Problems Problem Type SNOMED Code ICD Code Onset Dates Problem Status W/U Status Risk Notes Problem Acquired hammer toe of right foot (3816823668395235) Other hammer toe(s) (acquired), right foot (M20.41) Active confirmed Problem Acquired hammer toe of left foot (8832940771473109) Other hammer toe(s) (acquired), left foot (M20.42) Active confirmed Problem Polyneuropathy due to diabetes mellitus type I (292344705) Type 1 diabetes mellitus with diabetic polyneuropathy (E10.42) Active confirmed Problem [id number] Equinus deformi ty of left foot (M21.6X2) Active confirmed Problem [id number] Equinus deformi ty of right foot (M21.6X1) Active confirmed Plan Of Treatment No Information Insurance Providers Payer Name Payer Address Payer Phone Subscriber Number Group Number Insured Name Patient Relationship to Insured Coverage Start Date Coverage End Date [address] [address] [place] [address] [phone] [id number] Anirudh Arevalo Spouse - patient is the spouse of the insured Medical (General) History Medical History History ICD Code Anemia Back pain covid-19 Diabetic Fibromyalgia High blood pressure Numbness Reflux ( GERD) Measles Mumps Chicken pox Surgical History Surgery Date(Month/Year) Hospitalization History Reason Date(Month/Year) [facility] Covid 02/2021
== END 2024-03-08 11:48 | disposition home or self-care (01) ==
PROVIDERS: PCP Family Medicine; Visit Provider Internal Medicine Cardiovascular Disease
DX: I44.7 Left bundle-branch block, unspecified (principal)
CPT/HCPCS: 93010; 99214

== ENCOUNTER → 2024-03-08 11:25 | Outpatient (BNVA) | payer BC, SELFPAY | PROVIDERS: PCP Family Medicine; Visit Provider Internal Medicine Cardiovascular Disease | DX: I44.7 Left bundle-branch block, unspecified (principal) | CPT/HCPCS: 93005 ==